=== PATIENT | female | born 1945 | race Two or more races ===

== ENCOUNTER → 2016-12-01 | Outpatient (REF) | payer MEDICARE, OTHER ==
[2016-12-01 13:29] LABS: CALCIUM LEVEL 9.6 MG/DL (8.8-10.2); CREATININE FOR GFR 1.01 MG/DL (0.55-1.02); GLOMERULAR FILTRATION RATE 57.7 (>39); POTASSIUM SERUM 4.7 MEQ/L (3.5-5.1)
== END ==
LOC: M SFHCPLAZ 10:40
PROVIDERS: ATTEND Family Medicine
DX: M79.1 Myalgia (principal); Z86.79 Personal history of other diseases of the circulatory system; E78.5 Hyperlipidemia, unspecified; Z79.899 Other long term (current) drug therapy

== ENCOUNTER → 2017-02-23 | Outpatient (REF) | payer MEDICARE, OTHER ==
[2017-02-23 11:10] LABS: URIC ACID 4.2 MG/DL (2.6-6.0)
== END ==
LOC: M SFHCPLAZ 09:13
PROVIDERS: ATTEND Family Medicine
DX: M13.0 Polyarthritis, unspecified (principal)

== ENCOUNTER → 2017-06-15 | Outpatient (REF) | payer MEDICARE, OTHER ==
[2017-06-15 11:24] LABS: CHOLESTEROL LEVEL 219 MG/DL (<200); CHOLESTEROL RISK RATIO 3.128 (<5); HDL CHOLESTEROL 70 MG/DL (>40); LDL CHOLESTEROL 117.4 MG/DL (<100); NON-HDL-C 149 MG/DL; TRIGLYCERIDES LEVEL 158 MG/DL (<150)
== END ==
LOC: M SFHCPLAZ 08:40
DX: E78.2 Mixed hyperlipidemia (principal)
CPT/HCPCS: 80061

== ENCOUNTER 2017-09-07 18:24 | Emergency (ER) | payer MEDICARE, BC, OTHER ==
[2017-09-07] MEDS: ACETAMINOPHEN 325 MG TAB PO (19:30)
[2017-09-07] MEDS: traMADol 50 MG TAB PO (20:41)
== END 2017-09-07 21:01 | disposition home or self-care (01) ==
LOC: M ED 21:01
DX: S90.32XA Contusion of left foot, initial encounter (principal); V00.818A Other accident with wheelchair (powered), initial encounter; Y92.098 Other place in other non-institutional residence as the place of occurrence of the external cause; F32.9 Major depressive disorder, single episode, unspecified; F41.9 Anxiety disorder, unspecified; Z87.891 Personal history of nicotine dependence; Z88.0 Allergy status to penicillin; Z79.899 Other long term (current) drug therapy
CPT/HCPCS: 73630

== ENCOUNTER 2017-10-09 18:05 | Emergency (ER) | payer MEDICARE, BC, OTHER ==
[2017-10-09 19:21] LABS: HEMATOCRIT 40.9 % (36.0-47.0); HEMOGLOBIN 13.4 g/dl (12.0-15.5); MEAN CORPUSCULAR HEMOGLOBIN 30.7 pg (27.0-33.0); MEAN CORPUSCULAR HGB CONC 32.8 g/dl (32.0-36.5); MEAN CORPUSCULAR VOLUME 93.6 fl (80.0-96.0); PLATELET COUNT, AUTOMATED 385 10^3/uL (150-450); RED BLOOD COUNT 4.37 10^6/uL (4.00-5.40); WHITE BLOOD COUNT 9.5 10^3/uL (4.0-10.0)
[2017-10-09] MEDS: PROMETHAZINE INJ 25 MG/ML VIAL (J2550) IV (19:32)
[2017-10-09] MEDS: MORPHINE 2 MG/ML 1ML SYRINGE (J2270) IV (19:33)
[2017-10-09 19:40] LABS: INR 0.99; PARTIAL THROMBOPLASTIN TIME 26.4 SECONDS (26.8-37.9); PROTHROMBIN TIME 13.2 SECONDS (12.4-14.5)
[2017-10-09 19:52] LABS: ANION GAP 7 MEQ/L (8-16); BLOOD UREA NITROGEN 22 MG/DL (7-18); CALCIUM LEVEL 9.1 MG/DL (8.8-10.2); CARBON DIOXIDE LEVEL 24 MEQ/L (21-32); CHLORIDE LEVEL 110 MEQ/L (98-107); CPK CREATINE PHOSPHOKINASE 128 U/L (26-192); CREATININE FOR GFR 1.38 MG/DL (0.55-1.30); GLOMERULAR FILTRATION RATE 40.2 (>39); GLUCOSE, FASTING 77 MG/DL (70-100); SODIUM LEVEL 141 MEQ/L (136-145)
[2017-10-09 20:06] LABS: MYOGLOBIN SCREEN, URINE NEGATIVE (NEGATIVE)
[2017-10-09] MEDS: NORCO, ANEXSIA 5/325MG TABLET (HYDROcodone/ACETAMINOPHEN) PO (20:59)
[2017-10-09 21:14] LABS: D-DIMER QUANT < 270.0 ng/ml (<500)
== END 2017-10-09 21:34 | disposition home or self-care (01) ==
LOC: M ED 18:05
DX: S76.111A Strain of right quadriceps muscle, fascia and tendon, initial encounter (principal); S76.112A Strain of left quadriceps muscle, fascia and tendon, initial encounter; X50.9XXA Other and unspecified overexertion or strenuous movements or postures, initial encounter; Y92.89 Other specified places as the place of occurrence of the external cause; I10 Essential (primary) hypertension; E78.5 Hyperlipidemia, unspecified; F41.9 Anxiety disorder, unspecified; Z87.39 Personal history of other diseases of the musculoskeletal system and connective tissue; F17.200 Nicotine dependence, unspecified, uncomplicated; Z88.0 Allergy status to penicillin; Z79.899 Other long term (current) drug therapy; Z79.891 Long term (current) use of opiate analgesic
CPT/HCPCS: J2270

== ENCOUNTER 2018-12-06 15:14 | Emergency (ER) | payer MEDICARE, BC, OTHER ==
[~2018-12-06] VITALS: Ht 157.5 cm; Wt 42.3 kg
[~2018-12-06 15:14] MED LIST: CLON0.5T8 PO; DULO1CAP5; FLUO20CA19 PO; GABA-843; GABA600T4 PO; LORA0.5T11; NYST50SS; PRAV20TA2; TRAM50TA2
[2018-12-06] MEDS ORDERED: ATOR1TAB21 (15:31)
[2018-12-06] MEDS ORDERED: ACETAMINOPHEN 325 MG TAB PO ONE (16:00)
[2018-12-06] MEDS ORDERED: LORazepam 0.5 MG TAB PO STA (16:01)
[2018-12-06 16:13] LABS: HEMATOCRIT 40.6 % (36.0-47.0); HEMOGLOBIN 13.3 g/dl (12.0-15.5); MEAN CORPUSCULAR HEMOGLOBIN 29.7 pg (27.0-33.0); MEAN CORPUSCULAR HGB CONC 32.8 g/dl (32.0-36.5); MEAN CORPUSCULAR VOLUME 90.6 fl (80.0-96.0); PLATELET COUNT, AUTOMATED 314 10^3/uL (150-450); RED BLOOD COUNT 4.48 10^6/uL (4.00-5.40)
[2018-12-06 16:47] VITALS: BP 145/68
[2018-12-06 16:53] LABS: ACETAMINOPHEN LEVEL 16.1 UG/ML (10.0-30.0); ALBUMIN 3.7 GM/DL (3.2-5.2); ALT/SGPT 23 U/L (12-78); BILIRUBIN,DIRECT < 0.1 MG/DL (0.0-0.2); BILIRUBIN,TOTAL 0.3 MG/DL (0.2-1.0); BLOOD UREA NITROGEN 13 MG/DL (7-18); CALCIUM LEVEL 8.9 MG/DL (8.8-10.2); CARBON DIOXIDE LEVEL 26 MEQ/L (21-32); CHLORIDE LEVEL 109 MEQ/L (98-107); CREATININE FOR GFR 1.18 MG/DL (0.55-1.30); ETHYL ALCOHOL (ETHANOL) < 0.003 % (0.000-0.010); GLOMERULAR FILTRATION RATE 47.9 (>39); GLUCOSE, FASTING 85 MG/DL (70-100); POTASSIUM SERUM 4.4 MEQ/L (3.5-5.1); SALICYLATE LEVEL 4.4 MG/DL (5.0-30.0); SODIUM LEVEL 140 MEQ/L (136-145); TOTAL PROTEIN 7.3 GM/DL (6.4-8.2)
[2018-12-06 17:14] LABS: AMPHETAMINES LEVEL URINE NEGATIVE (NEGATIVE); BARBITURATES URINE NEGATIVE (NEGATIVE); BENZODIAZEPINES URINE NEGATIVE (NEGATIVE); CANNABINOIDS URINE NEGATIVE (NEGATIVE); COCAINE METABOLITE URINE NEGATIVE (NEGATIVE); METHADONE URINE NEGATIVE (NEGATIVE); OPIATES URINE POSITIVE (NEGATIVE); PHENCYCLIDINE URINE NEGATIVE (NEGATIVE)
== END 2018-12-06 16:48 | disposition home or self-care (01) ==
LOC: M ED 15:14
DX: F43.0 Acute stress reaction (principal); I10 Essential (primary) hypertension; Z79.899 Other long term (current) drug therapy; Z88.0 Allergy status to penicillin; Z88.5 Allergy status to narcotic agent; Z88.8 Allergy status to other drugs, medicaments and biological substances
CPT/HCPCS: 80048; 80076; 80307; 84443; 85027; 99284; G0480

== ENCOUNTER → 2019-02-01 | Outpatient (REF) | payer MEDICARE, OTHER ==
[~2019-02-01] MED LIST changes: +ATOR1TAB21
[2019-02-01 18:46] LABS: CPK CREATINE PHOSPHOKINASE 99 U/L (26-192)
[2019-02-02 20:51] LABS: COLD AGGLUTININS NEGATIVE (NEGATIVE)
== END ==
LOC: M SFHCPLAZ 15:29
PROVIDERS: ATTEND Family Medicine
DX: G72.9 Myopathy, unspecified (principal)
CPT/HCPCS: 36415; 82550; 86157; G0463

== ENCOUNTER 2019-04-04 10:56 | Day surgery (SDC) | payer MEDICARE, BC, OTHER ==
[~2019-04-04] VITALS: Ht 157.5 cm; Wt 42.1 kg
[~2019-04-04 10:56] MED LIST changes: -ATOR1TAB21; +ATOR1TAB21 PO; +FLUO40CA PO; +NS 1,000 ML IV SCH; -TRAM50TA2; +TRAM50TA2 PO
[2019-04-04] MEDS ORDERED: LIDOCAINE 2% INJ 100 MG/5 ML SDV (FOR ANES.) As Ordered ONE (11:38)
[2019-04-04] MEDS ORDERED: PROPOFOL 200 MG/20 ML VIAL As Ordered ONE (11:39)
[2019-04-04] MEDS ORDERED: MIDAZOLAM INJ 2 MG/2 ML VIAL (J2250) As Ordered ONE (12:42)
[2019-04-04] MEDS ORDERED: fentaNYL 100 MCG/2 ML INJECTION (J3010) As Ordered ONE (12:43)
[2019-04-04] MEDS ORDERED: PHENYLephrine HCL 500 MCG/5 ML (100MCG/ML) SYRINGE (J2370) As Ordered ONE (13:40)
--- NOTE | 2019-04-04 14:10 | ROOR ---
Patient Name: Terrie Boston Procedure Date: 04/04/2019 1:16 PM Date of : 1945 Age: 73 Room: [facility] Gender: Female Note Status: Finalized Procedure: Upper GI endoscopy Indications: Weight loss Providers: Jonh Jones DO Referring MD: Sapna Savage Do Requesting Provider: Medicines: Propofol per Anesthesia Complications: No immediate complications. Procedure: Pre-Anesthesia Assessment: - Prior to the procedure, a History and Physical was performed, and patient medications and allergies were reviewed. The patient is competent. The risks and benefits of the procedure and the sedation options and risks were discussed with the patient. All questions were answered and informed consent was obtained. Patient identification and proposed procedure were verified by the physician, the nurse, the anesthesiologist and the chemical waste management technician in the endoscopy suite. Mental Status Examination: alert and oriented. Airway Examination: normal oropharyngeal airway and neck mobility. Respiratory Examination: clear to auscultation. CV Examination: normal. Prophylactic Antibiotics: The patient does not require prophylactic antibiotics. Prior Anticoagulants: The patient has taken no previous anticoagulant or antiplatelet agents. ASA Grade Assessment: II - A patient with mild systemic disease. After reviewing the risks and benefits, the patient was deemed in satisfactory condition to undergo the procedure. The anesthesia plan was to use monitored anesthesia care (MAC). Immediately prior to administration of medications, the patient was re-assessed for adequacy to receive sedatives. The heart rate, respiratory rate, oxygen saturations, blood pressure, adequacy of pulmonary ventilation, and response to care were monitored throughout the procedure. The physical status of the patient was re-assessed after the procedure. The Endoscope was introduced through the mouth, and advanced to the second part of duodenum. The upper GI endoscopy was accomplished without difficulty. The upper GI endoscopy was accomplished without difficulty. The patient tolerated the procedure well. Findings: Hematin (altered blood/mixmvu-nozzrv-memw material) was found in the gastric body. Mild inflammation characterized by adherent blood and congestion (edema) was found in the gastric body. The exam was otherwise without abnormality. Impression: - Hematin (altered blood/savqoq-mwmxyt-jgmq material) in the gastric body. - Gastritis. - The examination was otherwise normal. - No specimens collected. Recommendation: - Patient has a contact number available for emergencies. The signs and symptoms of potential delayed complications were discussed with the patient. Return to normal activities tomorrow. Written discharge instructions were provided to the patient. - Return to my office PRN. Jonh Jones DO 04/04/2019 2:09:47 PM Electronically signed by Jonh Jones DO Number of Addenda: 0 Note Initiated On: 04/04/2019 1:16 PM Estimated Blood Loss: Estimated blood loss: none.
--- NOTE | 2019-04-04 14:14 | ROOR ---
Patient Name: Terrie Boston Procedure Date: 04/04/2019 1:18 PM Date of : 1945 Age: 73 Room: [facility] Gender: Female Note Status: Finalized Procedure: Colonoscopy Indications: Weight loss Providers: Jonh Jones DO Referring MD: Sapna Savage Do Requesting Provider: Medicines: Propofol per Anesthesia Complications: No immediate complications. Procedure: Pre-Anesthesia Assessment: - Prior to the procedure, a History and Physical was performed, and patient medications and allergies were reviewed. The patient is competent. The risks and benefits of the procedure and the sedation options and risks were discussed with the patient. All questions were answered and informed consent was obtained. Patient identification and proposed procedure were verified by the physician, the nurse, the anesthesiologist and the oil and gas exploration technician in the endoscopy suite. Mental Status Examination: alert and oriented. Airway Examination: normal oropharyngeal airway and neck mobility. Respiratory Examination: clear to auscultation. CV Examination: normal. Prophylactic Antibiotics: The patient does not require prophylactic antibiotics. Prior Anticoagulants: The patient has taken no previous anticoagulant or antiplatelet agents. ASA Grade Assessment: II - A patient with mild systemic disease. After reviewing the risks and benefits, the patient was deemed in satisfactory condition to undergo the procedure. The anesthesia plan was to use monitored anesthesia care (MAC). Immediately prior to administration of medications, the patient was re-assessed for adequacy to receive sedatives. The heart rate, respiratory rate, oxygen saturations, blood pressure, adequacy of pulmonary ventilation, and response to care were monitored throughout the procedure. The physical status of the patient was re-assessed after the procedure. The Colonoscope was introduced through the anus and advanced to the cecum, identified by appendiceal orifice and ileocecal valve. The colonoscopy was performed without difficulty. The patient tolerated the procedure well. Findings: A few small-mouthed diverticula were found in the sigmoid colon. Internal hemorrhoids were found during retroflexion. The hemorrhoids were small and Grade II (internal hemorrhoids that prolapse but reduce spontaneously). The exam was otherwise without abnormality on direct and retroflexion views. Impression: - Diverticulosis in the sigmoid colon. - Internal hemorrhoids. - The examination was otherwise normal on direct and retroflexion views. - No specimens collected. Recommendation: - Patient has a contact number available for emergencies. The signs and symptoms of potential delayed complications were discussed with the patient. Return to normal activities tomorrow. Written discharge instructions were provided to the patient. - Return to my office PRN. Jonh Jones DO 04/04/2019 2:13:25 PM Electronically signed by Jonh Jones DO Number of Addenda: 0 Note Initiated On: 04/04/2019 1:18 PM Estimated Blood Loss: Estimated blood loss: none.
[2019-04-04 15:15] VITALS: BP 125/75
== END 2019-04-04 15:36 | disposition home or self-care (01) ==
LOC: M OPP 10:56
PROVIDERS: ATTEND Surgery
DX: Z86.010 Personal history of colon polyps (principal); K64.1 Second degree hemorrhoids; R63.4 Abnormal weight loss; K57.30 Diverticulosis of large intestine without perforation or abscess without bleeding; K92.2 Gastrointestinal hemorrhage, unspecified; K29.70 Gastritis, unspecified, without bleeding; F17.210 Nicotine dependence, cigarettes, uncomplicated; Z79.891 Long term (current) use of opiate analgesic; Z79.899 Other long term (current) drug therapy; Z88.0 Allergy status to penicillin; Z88.4 Allergy status to anesthetic agent; Z88.5 Allergy status to narcotic agent; Z88.8 Allergy status to other drugs, medicaments and biological substances
CPT/HCPCS: 43235; 45378; J2250; J2370; J3010

== ENCOUNTER → 2019-04-10 | Outpatient (CLI) | payer MEDICARE, BC, OTHER ==
[~2019-04-10] MED LIST changes: -NS 1,000 ML IV SCH
--- NOTE | 2019-04-10 19:31 | REP ---
LOW DOSE LUNG SCREENING CT: Low dose lung screening CT exam is accomplished in the axial plane. There is scattered interstitial fibrosis with biapical pleural and parenchymal scarring. Multiple bilateral subcentimeter nodular opacities are seen measuring 2 to 3 mm in diameter. There are approximately 10 scattered throughout the right lung and approximately 18 scattered throughout the left lung. There is a band of density along the minor fissure on the right measuring 8 x 4 mm. There are a few peripheral calcified granulomas in the right middle lobe. A band of density in the left upper lobe on image 34 measures 7 x 4 mm. A 5 mm nodular opacity seen in the left lower lobe on image 64. There is somewhat irregular pleural based opacity in the region of the lingula measuring about 12 x 5 mm. More inferiorly in the lingula there is a pleural based oval nodular opacity 6 mm in diameter. There is mild diffuse bronchiectasis. No gross mediastinal contour abnormality is seen. The heart is normal in size. There is calcification of the thoracic aorta without aneurysm. There are degenerative changes of the spine. No pleural effusion is seen. IMPRESSION: Diffuse fibrotic changes in the lungs. There are multiple bilateral subcentimeter nodular opacities 2 to 3 mm in diameter as discussed above. There are also other slightly larger nodular opacities, with a band of opacity along the right minor fissure 8 x 4 mm, a bandlike opacity in the left upper lobe 7 x 4 mm, two pleural based opacities in the lingula and a nodular opacity in the left lower lobe 5 mm in diameter. Recommend followup CT with IV contrast in three months. Lung-RADS category 4 A. Electronically Signed by Jonh Mcdaniels MD 04/11/2019 03:36 P
== END ==
LOC: M RAD 12:45
PROVIDERS: ATTEND Obstetrics & Gynecology
DX: R91.8 Other nonspecific abnormal finding of lung field (principal); Z87.891 Personal history of nicotine dependence

== ENCOUNTER → 2019-05-29 | Outpatient (CLI) | payer MEDICARE, BC ==
[~2019-05-29] MED LIST changes: +CLON0.5T2 PO; -CLON0.5T8 PO
--- NOTE | 2019-05-29 14:01 | REPMRS ---
Patient History The patient states she has not had a clinical breast exam in over a year. Patient is postmenopausal. Family history of breast cancer at age 50 in sister, tongue cancer at age 29 in daughter, breast cancer at age 95 in maternal grandmother. Patients priors are no longer available, more than 10 years old. Digital Woman Screen Mammo: May 29, 2019 - Exam #: [id number] Bilateral CC and MLO view(s) were taken. Technologist: Darcie Yu, Technologist No prior studies available for comparison. FINDINGS: The breast tissue is heterogeneously dense. This may lower the sensitivity of mammography. There is no evidence of dominant mass, architectural distortion, or grouped microcalcification typical of malignancy. 3-D tomosynthesis shows no additional findings. Assessment: BI-RADS/ACR category 1 mammogram. Negative Mammogram. Recommendation Routine screening mammogram of both breasts in 1 year (for women over age 40). This patient's Lifetime Breast Cancer RIsk is estimated at 5.3 %. This mammogram was interpreted with the aid of an FDA-approved computer-aided dectection system. Electronically Signed By: Alvarado Prasad MD 05/29/19 [id number]
== END ==
LOC: M WHC 12:52
PROVIDERS: ATTEND Obstetrics & Gynecology
DX: Z12.31 Encounter for screening mammogram for malignant neoplasm of breast (principal); Z78.0 Asymptomatic menopausal state; Z80.3 Family history of malignant neoplasm of breast

== ENCOUNTER → 2019-07-03 | Outpatient (CLI) | payer MEDICARE, BC, OTHER ==
[~2019-07-03] MED LIST changes: -FLUO20CA19 PO; +FLUO20CA22 PO; -LORA0.5T11; +LORA0.5T5
--- NOTE | 2019-07-03 13:25 | REP ---
Clinical: Myopathy. Technique: AP, lateral, flexion/extension, bilateral oblique and coned-down views of the lumbosacral spine. Findings: Alignment and lordosis maintained. No acute fracture / compression injury or subluxation. Mild degenerative disc disease includes endplate sclerosis with minimal disc space narrowing and subtle facet arthropathy at L4-5 and L5-S1. Impression: Very minimal degenerative changes noted. Electronically Signed by Flo Preston MD 07/03/2019 01:16 P
[2019-07-03 14:03] LABS: BASO # 0.1 10^3/uL (0.0-0.2); BASO % 1.1 % (0.0-1.0); EOS # 0.1 10^3/uL (0.0-0.5); EOS % 0.6 % (0.0-3.0); HEMATOCRIT 44.4 % (36.0-47.0); HEMOGLOBIN 13.8 g/dl (12.0-15.5); LYMPH # 1.3 10^3/uL (1.5-5.0); LYMPH % 16.5 % (24.0-44.0); MEAN CORPUSCULAR HEMOGLOBIN 27.2 pg (27.0-33.0); MEAN CORPUSCULAR HGB CONC 31.1 g/dl (32.0-36.5); MEAN CORPUSCULAR VOLUME 87.4 fl (80.0-96.0); MONO # 0.4 10^3/uL (0.0-0.8); MONO % 5.1 % (0.0-5.0); NEUTROPHILS # 6.1 10^3/uL (1.5-8.5); NEUTROPHILS % 76.2 % (36.0-66.0); PLATELET COUNT, AUTOMATED 398 10^3/uL (150-450); RED BLOOD COUNT 5.08 10^6/uL (4.00-5.40)
[2019-07-03 14:09] LABS: APPEARANCE, URINE CLOUDY (CLEAR); BACTERIA, URINE AUTO 3+ (NEGATIVE); BILIRUBIN, URINE AUTO NEGATIVE (NEGATIVE); BLOOD, URINE BLOOD NEGATIVE (NEGATIVE); COLOR, URINE AMBER (YELLOW); GLUCOSE, URINE (UA) AUTO NEGATIVE (NEGATIVE); KETONE, URINE AUTO TRACE mg/dL (NEGATIVE); LEUKOCYTE ESTERASE, URINE AUTO 1+ (NEGATIVE); MUCUS, URINE SMALL (NEGATIVE); NITRITE, URINE AUTO POSITIVE (NEGATIVE); PROTEIN, URINE AUTO 2+ mg/dL (NEGATIVE); RBC, URINE AUTO 9 /HPF (0-3); SPECIFIC GRAVITY URINE AUTO 1.026 (1.002-1.035); SQUAMOUS EPITHELIAL CELL UR AU 12 /HPF (0-6); TRANSITIONAL EPITHELIAL AUTO 1 /HPF; WBC, URINE AUTO 16 /HPF (0-3)
[2019-07-03 14:19] LABS: BILIRUBIN,TOTAL 0.3 MG/DL (0.2-1.0); CALCIUM LEVEL 9.5 MG/DL (8.8-10.2); CREATININE FOR GFR 1.23 MG/DL (0.55-1.30); GLOMERULAR FILTRATION RATE 45.7 (>39); POTASSIUM SERUM 4.5 MEQ/L (3.5-5.1); TOTAL PROTEIN 7.3 GM/DL (6.4-8.2)
== END ==
LOC: M LAB 12:07
PROVIDERS: ATTEND Obstetrics & Gynecology
DX: R63.4 Abnormal weight loss (principal); G72.9 Myopathy, unspecified

== ENCOUNTER → 2019-09-14 | Outpatient (REF) | payer MEDICARE ==
[2019-09-14 18:33] LABS: CALCIUM LEVEL 9.2 MG/DL (8.8-10.2); CHOLESTEROL RISK RATIO 2.882 (<5); CREATININE FOR GFR 1.28 MG/DL (0.55-1.30); GLOMERULAR FILTRATION RATE 43.6 (>39); POTASSIUM SERUM 4.5 MEQ/L (3.5-5.1)
[2019-09-14 20:26] LABS: FREE T4 0.85 NG/DL (0.76-1.46); THYROID STIMULATING HORMONE 4.06 uIU/ML (0.358-3.740)
== END ==
LOC: M SFHCPLAZ 15:33
DX: F41.9 Anxiety disorder, unspecified (principal); Z13.1 Encounter for screening for diabetes mellitus; Z13.220 Encounter for screening for lipoid disorders; Z79.899 Other long term (current) drug therapy

== ENCOUNTER → 2019-10-30 | Outpatient (CLI) | payer MEDICARE | LOC: M LABSMTC 13:01 | PROVIDERS: ATTEND Family Medicine | DX: Z03.818 Encounter for observation for suspected exposure to other biological agents ruled out (principal); Z11.59 Encounter for screening for other viral diseases | CPT/HCPCS: C9803; U0003 ==

== ENCOUNTER 2019-11-24 13:59 | Emergency (ER) | payer MEDICARE ==
[~2019-11-24] VITALS: Ht 157.5 cm; Wt 47.4 kg
[2019-11-24] MEDS ORDERED: AMIT10TA (14:08)
[2019-11-24] MEDS ORDERED: GABA-845 (14:08)
--- NOTE | 2019-11-24 14:48 | REP ---
Clinical: Chest pain . Comparison: None . Findings: The mediastinum and cardiac silhouette are stable and within normal limits for portable technique. The lung viramontes demonstrate chronic-appearing changes without acute consolidation, effusion, or pneumothorax. Skeletal structures are intact. Impression: No acute cardiopulmonary process appreciated. Electronically Signed by Flo Preston MD 11/24/2019 02:39 P
--- NOTE | 2019-11-24 15:01 | REP ---
Clinical: Altered mental status . Findings: Age-related atrophy and microvascular ischemic changes are appreciated. The ventricles and sulci are symmetric. Mcdaniels-white differentiation is maintained. There is no evidence for acute intracranial hemorrhage, mass/mass effect, pathology or infarction. No extra-axial fluid collection. Calvarium is intact. Paranasal sinuses and mastoid air cells are clear. Impression: Age related atrophy and microvascular ischemic changes. No acute intracranial hemorrhage, infarction, or mass/mass effect. Electronically Signed by Flo Preston MD 11/24/2019 02:52 P
[2019-11-24 15:31] LABS: BASO # 0.1 10^3/uL (0.0-0.2); BASO % 1.4 % (0.0-1.0); EOS # 0.2 10^3/uL (0.0-0.5); EOS % 2.7 % (0.0-3.0); HEMATOCRIT 39.5 % (36.0-47.0); HEMOGLOBIN 12.6 g/dl (12.0-15.5); LYMPH # 2.1 10^3/uL (1.5-5.0); LYMPH % 31.2 % (24.0-44.0); MEAN CORPUSCULAR HEMOGLOBIN 28.8 pg (27.0-33.0); MEAN CORPUSCULAR HGB CONC 31.9 g/dl (32.0-36.5); MEAN CORPUSCULAR VOLUME 90.4 fl (80.0-96.0); MONO # 0.5 10^3/uL (0.0-0.8); MONO % 7.6 % (0.0-5.0); NEUTROPHILS # 3.7 10^3/uL (1.5-8.5); NEUTROPHILS % 56.8 % (36.0-66.0); PLATELET COUNT, AUTOMATED 267 10^3/uL (150-450); RED BLOOD COUNT 4.37 10^6/uL (4.00-5.40); WHITE BLOOD COUNT 6.6 10^3/uL (4.0-10.0)
[2019-11-24 15:52] LABS: INR 0.97; PROTHROMBIN TIME 12.6 SECONDS (11.8-14.0)
[2019-11-24 15:58] LABS: ALBUMIN 3.8 GM/DL (3.2-5.2); ALT/SGPT 27 U/L (12-78); BILIRUBIN,DIRECT 0.1 MG/DL (0.0-0.2); BILIRUBIN,TOTAL 0.4 MG/DL (0.2-1.0); BLOOD UREA NITROGEN 23 MG/DL (7-18); CALCIUM LEVEL 8.8 MG/DL (8.8-10.2); CARBON DIOXIDE LEVEL 20 MEQ/L (21-32); CHLORIDE LEVEL 110 MEQ/L (98-107); CK-MB VALUE MASS 8.3 NG/ML (<3.6); CPK CREATINE PHOSPHOKINASE 687 U/L (26-192); CREATININE FOR GFR 1.64 MG/DL (0.55-1.30); GLOMERULAR FILTRATION RATE 32.7 (>39); GLUCOSE, FASTING 71 MG/DL (70-100); LIPASE 88 U/L (73-393); MB/CK RELATIVE INDEX 1.21 (< OR =4); POTASSIUM SERUM 4.3 MEQ/L (3.5-5.1); SODIUM LEVEL 141 MEQ/L (136-145); TOTAL PROTEIN 7.1 GM/DL (6.4-8.2); TROPONIN I < 0.02 NG/ML (< 0.10)
[2019-11-24] MEDS ORDERED: NS 500 ML IV ONE (16:30)
--- NOTE | 2019-11-24 16:50 | ECGEPIP ---
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
--- NOTE | 2019-11-24 17:28 | REP ---
Clinical: Trauma. Fall. Technique: Frontal view of the pelvis. Findings: Age-related degenerative changes. No acute fracture or dislocation. Surrounding soft tissues unremarkable. Impression: No acute fracture or dislocation. Electronically Signed by Flo Preston MD 11/24/2019 05:20 P
[2019-11-24] MEDS ORDERED: traMADol 50 MG TAB PO ONE ×2 (17:45→19:15)
[2019-11-24] MEDS ORDERED: cefTRIAXone SOD 1 GM in D5W MINI-BAG PLUS 50 ML IV ONE (17:45)
[2019-11-24] MEDS ORDERED: MORPHINE 2 MG/ML 1ML VIAL (J2270) IV ONE (18:15)
[2019-11-24 19:00] VITALS: BP 172/93
[2019-11-24] MEDS ORDERED: KEFL500C17 PO (19:03)
== END 2019-11-24 19:29 | disposition home or self-care (01) ==
LOC: M ED 13:59
DX: N39.0 Urinary tract infection, site not specified (principal); E78.5 Hyperlipidemia, unspecified; F17.200 Nicotine dependence, unspecified, uncomplicated; Z79.899 Other long term (current) drug therapy; Z88.0 Allergy status to penicillin; Z88.6 Allergy status to analgesic agent; Z88.8 Allergy status to other drugs, medicaments and biological substances
CPT/HCPCS: 70450; 71045; 72170; 80048; 80076; 81001; 82550; 82553; 83690; 84484; 85025; 85610; 87088; 87186; 93005; 93041; 94760; 96365; 96375; 99285; J0696; J2270

== ENCOUNTER → 2020-02-13 | Outpatient (CLI) | payer MEDICARE ==
[~2020-02-13] MED LIST changes: +AMIT10TA; +GABA-845; +KEFL500C17 PO; +MECL1TAB31 PO; +PARO40TA2
[2020-02-13 13:38] LABS: APPEARANCE, URINE HAZY (CLEAR); BACTERIA, URINE AUTO 1+ (NEGATIVE); BILIRUBIN, URINE AUTO NEGATIVE (NEGATIVE); BLOOD, URINE BLOOD NEGATIVE (NEGATIVE); COLOR, URINE YELLOW (YELLOW); GLUCOSE, URINE (UA) AUTO NEGATIVE (NEGATIVE); KETONE, URINE AUTO TRACE mg/dL (NEGATIVE); LEUKOCYTE ESTERASE, URINE AUTO 3+ (NEGATIVE); NITRITE, URINE AUTO NEGATIVE (NEGATIVE); PROTEIN, URINE AUTO NEGATIVE (NEGATIVE); RBC, URINE AUTO 2 /HPF (0-3); SPECIFIC GRAVITY URINE AUTO 1.015 (1.002-1.035); SQUAMOUS EPITHELIAL CELL UR AU 3 /HPF (0-6); UROBILINOGEN, URINE AUTO 0.2 mg/dL (0.0-2.0); WBC, URINE AUTO 23 /HPF (0-3)
[2020-02-13 14:07] LABS: CREATININE FOR GFR 1.39 MG/DL (0.55-1.30); GLOMERULAR FILTRATION RATE 39.6 (>39); POTASSIUM SERUM 4.4 MEQ/L (3.5-5.1)
[2020-02-13 14:08] LABS: ALBUMIN 3.7 GM/DL (3.2-5.2); BILIRUBIN,TOTAL 0.3 MG/DL (0.2-1.0); CHOLESTEROL RISK RATIO 3.554 (<5); CREATININE, URINE 88.4 MG/DL; FREE T4 0.89 NG/DL (0.76-1.46); MALB URINE SIEMENS 25.6 MG/L; MAU/CREAT RATIO 28.9 MCG/MG (0.0-30.0); TOTAL PROTEIN 7.4 GM/DL (6.4-8.2)
== END ==
LOC: M PLALAB 11:29
PROVIDERS: ATTEND Student in an Organized Health Care Education/Training Program
DX: E03.9 Hypothyroidism, unspecified (principal); E78.5 Hyperlipidemia, unspecified; N18.3 Chronic kidney disease, stage 3 (moderate); Z51.81 Encounter for therapeutic drug level monitoring

== ENCOUNTER 2020-02-29 14:49 | Emergency (ER) | payer MEDICARE ==
[~2020-02-29] VITALS: Ht 157.5 cm; Wt 50.0 kg
[~2020-02-29 14:49] MED LIST changes: -MECL1TAB31 PO; -PARO40TA2
--- NOTE | 2020-02-29 15:35 | REPVR ---
PROCEDURE INFORMATION: Exam: CT Head Without Contrast Exam date and time: 02/29/2020 3:19 PM Age: 74 years old Clinical indication: Dizziness; Additional info: CVA - nursing interventions must not delay CT TECHNIQUE: Imaging protocol: Computed tomography of the head without contrast. Radiation optimization: All CT scans at this facility use at least one of these dose optimization techniques: automated exposure control; mA and/or kV adjustment per patient size (includes targeted exams where dose is matched to clinical indication); or iterative reconstruction. Other technique: STROKE PROTOCOL was implemented. COMPARISON: CT Head without contrast 11/24/2019 2:35 PM FINDINGS: Brain: There is moderate generalized cerebral atrophy. Moderately advanced patchy low density present in the periventricular white matter extending into the maki radiata and the centrum semiovale bilaterally. No hemorrhage. No mass effect. Midline structures intact Cerebral ventricles: No ventriculomegaly. Bones/joints: Unremarkable. No acute fracture. Paranasal sinuses: Visualized sinuses are unremarkable. No fluid levels. Mastoid air cells: Visualized mastoid air cells are well aerated. Soft tissues: Unremarkable. IMPRESSION: No acute findings. 2. Moderate cortical atrophy. ASSESSMENT: ASPECTS (Devi Stroke Program Early CT Score) is 10. Electronically signed by: Tanya Low On 02/29/2020 15:35:29 PM
[2020-02-29 16:02] LABS: BASO # 0.1 10^3/uL (0.0-0.2); BASO % 1.2 % (0.0-1.0); EOS # 0.1 10^3/uL (0.0-0.5); EOS % 1.9 % (0.0-3.0); HEMATOCRIT 38.9 % (36.0-47.0); HEMOGLOBIN 12.2 g/dl (12.0-15.5); LYMPH # 2.4 10^3/uL (1.5-5.0); LYMPH % 35.2 % (24.0-44.0); MEAN CORPUSCULAR HEMOGLOBIN 28.8 pg (27.0-33.0); MEAN CORPUSCULAR HGB CONC 31.4 g/dl (32.0-36.5); MONO # 0.4 10^3/uL (0.0-0.8); MONO % 6.3 % (0.0-5.0); NEUTROPHILS # 3.8 10^3/uL (1.5-8.5); NEUTROPHILS % 55.1 % (36.0-66.0); PLATELET COUNT, AUTOMATED 313 10^3/uL (150-450); RED BLOOD COUNT 4.23 10^6/uL (4.00-5.40); WHITE BLOOD COUNT 6.9 10^3/uL (4.0-10.0)
[2020-02-29] MEDS ORDERED: PARO40TA2 (16:13)
[2020-02-29 16:14] LABS: INR 0.96
[2020-02-29 16:15] LABS: PARTIAL THROMBOPLASTIN TIME 27.9 SECONDS (24.2-38.5)
--- NOTE | 2020-02-29 16:24 | REPVR ---
PROCEDURE INFORMATION: Exam: XR Chest, 1 View Exam date and time: 02/29/2020 4:12 PM Age: 74 years old Clinical indication: Shortness of breath; Additional info: CVA TECHNIQUE: Imaging protocol: XR of the chest Views: 1 view. COMPARISON: CR PORTABLE CHEST X-RAY 11/24/2019 2:26 PM FINDINGS: Tubes, catheters and devices: External monitoring devices present. Lungs: Calcified granulomas present on the right . Diffuse emphysema with hyperinflation. Pleural space: Unremarkable. No pleural effusion. No pneumothorax. Heart/Mediastinum: Unremarkable. No cardiomegaly. Bones/joints: Unremarkable. Other findings: 1 cm oval-shaped area sclerosis projects over the left humeral head. IMPRESSION: Emphysema with hyperinflation Electronically signed by: Tanya Low On 02/29/2020 16:23:55 PM
[2020-02-29 16:32] LABS: CK-MB VALUE MASS 2.2 NG/ML (<3.6); CPK CREATINE PHOSPHOKINASE 199 U/L (26-192); MB/CK RELATIVE INDEX 1.11 (< OR =4); TROPONIN I < 0.02 NG/ML (< 0.10)
[2020-02-29] MEDS ORDERED: MECLIZINE 25 MG TABLET PO ONE (16:45)
[2020-02-29 18:15] VITALS: BP 158/94
[2020-02-29] MEDS ORDERED: MECL1TAB31 PO (18:30)
--- NOTE | 2020-03-01 06:41 | ECGEPIP ---
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
== END 2020-02-29 19:00 | disposition home or self-care (01) ==
LOC: M ED 14:49
DX: H83.09 Labyrinthitis, unspecified ear (principal); I10 Essential (primary) hypertension; G31.9 Degenerative disease of nervous system, unspecified; J43.9 Emphysema, unspecified; Z88.0 Allergy status to penicillin; Z88.6 Allergy status to analgesic agent; Z88.8 Allergy status to other drugs, medicaments and biological substances; Z79.899 Other long term (current) drug therapy

== ENCOUNTER → 2020-03-21 | Outpatient (REF) | payer MEDICARE ==
[~2020-03-21] MED LIST changes: +MECL1TAB31 PO; +PARO40TA2
== END ==
LOC: M SFHCPLAZ 16:46
PROVIDERS: ATTEND Student in an Organized Health Care Education/Training Program
DX: Z51.81 Encounter for therapeutic drug level monitoring (principal)

== ENCOUNTER 2020-04-15 11:34 | Emergency (ER) | payer MEDICARE ==
[~2020-04-15] VITALS: Ht 157.5 cm; Wt 49.1 kg
[2020-04-15] MEDS ORDERED: diazePAM 10MG/2ML SYRINGE (J3360 PER 5MG) IM ONE (12:15)
[2020-04-15] MEDS ORDERED: KETOROLAC 30 MG/ML 1ML VIAL IM ONE (12:15)
[2020-04-15] MEDS ORDERED: NEUR600T PO (13:06)
[2020-04-15 13:37] VITALS: BP 159/79
== END 2020-04-15 13:43 | disposition home or self-care (01) ==
LOC: M ED 11:34
DX: M79.604 Pain in right leg (principal); M79.605 Pain in left leg; F17.200 Nicotine dependence, unspecified, uncomplicated; Z88.0 Allergy status to penicillin; Z88.8 Allergy status to other drugs, medicaments and biological substances; Z88.6 Allergy status to analgesic agent; Z79.899 Other long term (current) drug therapy
CPT/HCPCS: 96372; 99284; J1885; J3360

== ENCOUNTER 2020-05-13 16:58 | Emergency (ER) | payer MEDICARE ==
[~2020-05-13] VITALS: Ht 157.5 cm; Wt 46.4 kg
[~2020-05-13 16:58] MED LIST changes: +GABA-282; -GABA-843; +NEUR600T PO
[2020-05-13] MEDS ORDERED: ALPRAZolam 0.25 MG TAB PO ONE (18:00)
[2020-05-13 18:44] LABS: HEMATOCRIT 46.4 % (36.0-47.0); HEMOGLOBIN 14.5 g/dl (12.0-15.5); MEAN CORPUSCULAR HEMOGLOBIN 28.5 pg (27.0-33.0); MEAN CORPUSCULAR HGB CONC 31.3 g/dl (32.0-36.5); MEAN CORPUSCULAR VOLUME 91.3 fl (80.0-96.0); PLATELET COUNT, AUTOMATED 303 10^3/uL (150-450); RED BLOOD COUNT 5.08 10^6/uL (4.00-5.40); WHITE BLOOD COUNT 7.6 10^3/uL (4.0-10.0)
[2020-05-13 19:32] LABS: ALBUMIN 4.1 GM/DL (3.2-5.2); ALT/SGPT 65 U/L (12-78); BILIRUBIN,DIRECT 0.1 MG/DL (0.0-0.2); BILIRUBIN,TOTAL 0.4 MG/DL (0.2-1.0); BLOOD UREA NITROGEN 25 MG/DL (7-18); CALCIUM LEVEL 8.9 MG/DL (8.8-10.2); CARBON DIOXIDE LEVEL 28 MEQ/L (21-32); CHLORIDE LEVEL 106 MEQ/L (98-107); CREATININE FOR GFR 1.41 MG/DL (0.55-1.30); ETHYL ALCOHOL (ETHANOL) 0.004 % (0.000-0.010); GLOMERULAR FILTRATION RATE 38.9 (>39); GLUCOSE, FASTING 138 MG/DL (70-100); POTASSIUM SERUM 4.1 MEQ/L (3.5-5.1); SALICYLATE LEVEL 2.6 MG/DL (5.0-30.0); SODIUM LEVEL 141 MEQ/L (136-145); TOTAL PROTEIN 7.7 GM/DL (6.4-8.2)
[2020-05-13 19:33] LABS: ACETAMINOPHEN LEVEL < 2.0 UG/ML (10.0-30.0)
--- NOTE | 2020-05-13 19:46 | REPVR ---
PROCEDURE INFORMATION: Exam: CT Head Without Contrast Exam date and time: 05/13/2020 7:14 PM Age: 74 years old Clinical indication: Injury or trauma; Fall; Blunt trauma (contusions or hematomas) TECHNIQUE: Imaging protocol: Computed tomography of the head without contrast. Radiation optimization: All CT scans at this facility use at least one of these dose optimization techniques: automated exposure control; mA and/or kV adjustment per patient size (includes targeted exams where dose is matched to clinical indication); or iterative reconstruction. COMPARISON: CT Head without contrast 02/29/2020 3:21 PM FINDINGS: Brain: There is moderate age related parenchymal volume loss. White matter changes are demonstrated in the subcortical, centrum semiovale and periventricular white matter consistent with age related small vessel white matter ischemic changes. Cerebral ventricles: The degree of ventricular dilatation is normal for age and/or degree of atrophy present. Bones/joints: Unremarkable. No acute fracture. Paranasal sinuses: Visualized sinuses are unremarkable. No fluid levels. Mastoid air cells: Visualized mastoid air cells are well aerated. Soft tissues: Unremarkable. IMPRESSION: 1. There is moderate age related parenchymal volume loss. White matter changes are demonstrated in the subcortical, centrum semiovale and periventricular white matter consistent with age related small vessel white matter ischemic changes. 2. The degree of ventricular dilatation is normal for age and/or degree of atrophy present. Electronically signed by: Wellington Dawn On 05/13/2020 19:46:33 PM
[2020-05-13 20:40] VITALS: BP 145/80
== END 2020-05-13 23:07 | disposition home or self-care (01) ==
LOC: M ED 16:58
DX: F41.9 Anxiety disorder, unspecified (principal); F33.9 Major depressive disorder, recurrent, unspecified; E78.5 Hyperlipidemia, unspecified; F17.200 Nicotine dependence, unspecified, uncomplicated; Z88.0 Allergy status to penicillin; Z88.6 Allergy status to analgesic agent; Z88.8 Allergy status to other drugs, medicaments and biological substances; Z79.899 Other long term (current) drug therapy
CPT/HCPCS: 36415; 70450; 80048; 80076; 84443; 85027; 99284; G0480

== ENCOUNTER 2020-08-02 18:55 | Emergency (ER) | payer MEDICARE ==
[~2020-08-02] VITALS: Ht 157.5 cm; Wt 50.0 kg
[~2020-08-02 18:55] MED LIST changes: -AMIT10TA; +AMIT10TA7
[2020-08-02] MEDS ORDERED: traMADol 50 MG TAB PO ONE (19:10)
[2020-08-02] MEDS ORDERED: NORCO, ANEXSIA 5/325MG TABLET (HYDROcodone/ACETAMINOPHEN) PO ONE (19:25)
[2020-08-02 19:38] LABS: BASO # 0.1 10^3/uL (0.0-0.2); BASO % 0.6 % (0.0-1.0); EOS # 0.1 10^3/uL (0.0-0.5); EOS % 1.7 % (0.0-3.0); HEMATOCRIT 39.8 % (36.0-47.0); HEMOGLOBIN 12.5 g/dl (12.0-15.5); LYMPH # 2.7 10^3/uL (1.5-5.0); LYMPH % 33.7 % (24.0-44.0); MEAN CORPUSCULAR HEMOGLOBIN 30.1 pg (27.0-33.0); MEAN CORPUSCULAR HGB CONC 31.4 g/dl (32.0-36.5); MEAN CORPUSCULAR VOLUME 95.9 fl (80.0-96.0); MONO # 0.5 10^3/uL (0.0-0.8); NEUTROPHILS # 4.7 10^3/uL (1.5-8.5); NEUTROPHILS % 57.8 % (36.0-66.0); PLATELET COUNT, AUTOMATED 235 10^3/uL (150-450); RED BLOOD COUNT 4.15 10^6/uL (4.00-5.40); WHITE BLOOD COUNT 8.1 10^3/uL (4.0-10.0)
[2020-08-02] MEDS ORDERED: NS 500 ML IV ONE (19:50)
[2020-08-02 20:13] LABS: ALBUMIN 3.7 GM/DL (3.2-5.2); ALT/SGPT 17 U/L (12-78); BILIRUBIN,DIRECT < 0.1 MG/DL (0.0-0.2); BILIRUBIN,TOTAL 0.1 MG/DL (0.2-1.0); BLOOD UREA NITROGEN 10 MG/DL (7-18); CALCIUM LEVEL 8.7 MG/DL (8.8-10.2); CARBON DIOXIDE LEVEL 26 MEQ/L (21-32); CHLORIDE LEVEL 117 MEQ/L (98-107); CK-MB VALUE MASS 2.6 NG/ML (<3.6); CPK CREATINE PHOSPHOKINASE 169 U/L (26-192); CREATININE FOR GFR 1.06 MG/DL (0.55-1.30); GLOMERULAR FILTRATION RATE 54.1 (>39); GLUCOSE, FASTING 86 MG/DL (70-100); MB/CK RELATIVE INDEX 1.54 (< OR =4); SODIUM LEVEL 148 MEQ/L (136-145); TOTAL PROTEIN 6.9 GM/DL (6.4-8.2); TROPONIN I < 0.02 NG/ML (< 0.10)
[2020-08-02 20:30] VITALS: BP 134/77
--- NOTE | 2020-08-03 01:36 | REP ---
INDICATION: Altered Mental Status COMPARISON: 02/29/2020 TECHNIQUE: Portable AP view of the chest FINDINGS: The mediastinum and cardiac silhouette are stable and within normal limits for portable technique. The lung viramontes demonstrate chronic interstitial changes without acute consolidation, effusion, or pneumothorax. Skeletal structures are intact. IMPRESSION: Chronic changes. No acute cardiopulmonary process appreciated. <Electronically signed by Flo Preston > 08/03/20 [id number]
--- NOTE | 2020-08-03 09:39 | ECGEPIP ---
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
== END 2020-08-02 20:41 | disposition home or self-care (01) ==
LOC: EDSEX 18:55 → M ED 18:55 → EDBD 18:55 → M ED 20:41
DX: M79.10 Myalgia, unspecified site (principal); R05 Cough; R51.9 Headache, unspecified; I10 Essential (primary) hypertension; F17.200 Nicotine dependence, unspecified, uncomplicated; Z88.0 Allergy status to penicillin; Z88.6 Allergy status to analgesic agent; Z88.8 Allergy status to other drugs, medicaments and biological substances; Z79.899 Other long term (current) drug therapy

== ENCOUNTER → 2020-08-16 | Outpatient (REF) | payer MEDICARE ==
[2020-08-16 18:26] LABS: APPEARANCE, URINE TURBID (CLEAR); BACTERIA, URINE AUTO 3+ (NEGATIVE); BILIRUBIN, URINE AUTO NEGATIVE (NEGATIVE); BLOOD, URINE BLOOD 2+ (NEGATIVE); COLOR, URINE YELLOW (YELLOW); GLUCOSE, URINE (UA) AUTO NEGATIVE (NEGATIVE); KETONE, URINE AUTO NEGATIVE (NEGATIVE); LEUKOCYTE ESTERASE, URINE AUTO 2+ (NEGATIVE); NITRITE, URINE AUTO POSITIVE (NEGATIVE); PROTEIN, URINE AUTO 3+ mg/dL (NEGATIVE); RBC, URINE AUTO 108 /HPF (0-3); SPECIFIC GRAVITY URINE AUTO 1.017 (1.002-1.035); SQUAMOUS EPITHELIAL CELL UR AU 0 /HPF (0-6); UROBILINOGEN, URINE AUTO 0.2 mg/dL (0.0-2.0); WBC, URINE AUTO TNTC /HPF (0-3)
== END ==
LOC: M LAB REF 16:55
PROVIDERS: ATTEND Physician Assistant
DX: R30.0 Dysuria (principal)

== ENCOUNTER 2020-08-28 14:20 | Emergency (ER) | payer MEDICARE ==
[~2020-08-28] VITALS: Ht 157.5 cm; Wt 47.7 kg
[2020-08-28] MEDS ORDERED: MORPHINE 10 MG/ML 1ML VIAL (J2270) IM ONE ×2 (14:50→16:05)
[2020-08-28 15:14] LABS: BASO # 0.1 10^3/uL (0.0-0.2); BASO % 0.6 % (0.0-1.0); EOS # 0.1 10^3/uL (0.0-0.5); EOS % 0.5 % (0.0-3.0); HEMATOCRIT 41.2 % (36.0-47.0); HEMOGLOBIN 13.4 g/dl (12.0-15.5); LYMPH # 1.9 10^3/uL (1.5-5.0); LYMPH % 14.7 % (24.0-44.0); MEAN CORPUSCULAR HEMOGLOBIN 30.7 pg (27.0-33.0); MEAN CORPUSCULAR HGB CONC 32.5 g/dl (32.0-36.5); MEAN CORPUSCULAR VOLUME 94.3 fl (80.0-96.0); MONO # 0.7 10^3/uL (0.0-0.8); MONO % 5.8 % (2.0-8.0); NEUTROPHILS # 9.9 10^3/uL (1.5-8.5); PLATELET COUNT, AUTOMATED 369 10^3/uL (150-450); RED BLOOD COUNT 4.37 10^6/uL (4.00-5.40); WHITE BLOOD COUNT 12.7 10^3/uL (4.0-10.0)
--- NOTE | 2020-08-28 15:47 | REP ---
INDICATION: neck and back pain. COMPARISON: None. TECHNIQUE: Axial CT images with multiplanar reformations. FINDINGS: There is an exaggerated thoracic kyphosis. No evidence of fracture or malalignment. No significant canal or foraminal narrowing. The bones appear diffusely demineralized. There is atherosclerotic calcification of the aorta noted. There is a calcified pulmonary nodule at the anterior right lungs, image 47 series 506. There is small (perhaps 3-4 mm) ill-defined opacity also on the right lung, image 31 series 506. IMPRESSION: 1. No acute findings. No fracture or subluxation. 2. Diffuse osteopenia. 3. Small pulmonary opacities described. If significant clinical risk factors, CT chest may be informative in follow-up. <Electronically signed by Desean Bundy > 08/28/20 [id number]
[2020-08-28 15:48] LABS: ACETAMINOPHEN LEVEL < 2.0 UG/ML (10.0-30.0); ALBUMIN 3.2 GM/DL (3.2-5.2); ALT/SGPT 21 U/L (12-78); BILIRUBIN,DIRECT < 0.1 MG/DL (0.0-0.2); BILIRUBIN,TOTAL 0.4 MG/DL (0.2-1.0); BLOOD UREA NITROGEN 14 MG/DL (7-18); CALCIUM LEVEL 9.4 MG/DL (8.8-10.2); CARBON DIOXIDE LEVEL 26 MEQ/L (21-32); CHLORIDE LEVEL 111 MEQ/L (98-107); CPK CREATINE PHOSPHOKINASE 71 U/L (26-192); CREATININE FOR GFR 0.74 MG/DL (0.55-1.30); ETHYL ALCOHOL (ETHANOL) < 0.003 % (0.000-0.010); GLOMERULAR FILTRATION RATE > 60.0 (>39); GLUCOSE, FASTING 104 MG/DL (70-100); MB/CK RELATIVE INDEX 2.82 (< OR =4); POTASSIUM SERUM 4.6 MEQ/L (3.5-5.1); SALICYLATE LEVEL 3.8 MG/DL (5.0-30.0); SODIUM LEVEL 143 MEQ/L (136-145); TROPONIN I < 0.02 NG/ML (< 0.10)
--- NOTE | 2020-08-28 15:49 | REP ---
INDICATION: neck and back pain. COMPARISON: None. TECHNIQUE: Axial CT images with multiplanar reformations. FINDINGS: No evidence of fracture or malalignment. Degenerative disc disease is more advanced at the C5-6 level with near absence of disc. No evidence of a significant canal stenosis. No significant foraminal stenosis C2-3 through C4-5. At C5-6 endplate osteophytes result in moderate bilateral foraminal narrowing. At C6-7 and C7-T1 no significant canal or foraminal narrowing. IMPRESSION: No acute findings Degenerative changes noted at the C5-6 level with near absence of disc and endplate osteophytes with moderate foraminal narrowing bilaterally. No significant canal stenosis. <Electronically signed by Desean Bundy > 08/28/20 [id number]
--- NOTE | 2020-08-28 17:12 | REP ---
INDICATION: eval for lung opacities. COMPARISON: Chest CT low-dose lung screening dated 04/10/2019. TECHNIQUE: Chest CT without IV contrast. FINDINGS: There are many tiny lung nodules bilaterally that were present previously and are unchanged. However, there are fewer lung nodules today than previously and many of the lung nodules identified previously have resolved, likely transient atelectasis. No new lung nodules are identified. There are no enlarging lung nodules. There are no infiltrates or effusions. There is bullous replacement of the lung parenchyma bilaterally and bronchiectasis, as previously. There are no infiltrates or pleural effusions. There is no mediastinal or axillary lymphadenopathy. In the absence of IV contrast the study is insensitive for hilar adenopathy. Cardiac size normal. There is calcified atheroma and so of the coronary arteries. No pericardial effusion. Visualized upper abdominal contents are unremarkable. There is no adrenal mass. IMPRESSION: There are tiny lung nodules as described. Bullous emphysema. Bronchiectasis. <Electronically signed by Jonh Lang > 08/28/20 [id number]
[2020-08-28 17:59] LABS: AMPHETAMINES LEVEL URINE NEGATIVE (NEGATIVE); BARBITURATES URINE NEGATIVE (NEGATIVE); BENZODIAZEPINES URINE NEGATIVE (NEGATIVE); CANNABINOIDS URINE NEGATIVE (NEGATIVE); COCAINE METABOLITE URINE NEGATIVE (NEGATIVE); METHADONE URINE NEGATIVE (NEGATIVE); OPIATES URINE POSITIVE (NEGATIVE); PHENCYCLIDINE URINE NEGATIVE (NEGATIVE)
[2020-08-28] MEDS ORDERED: CYCLOBENZAPRINE 10MG TABLET PO ONE (18:10)
[2020-08-28] MEDS ORDERED: CYCL-707 PO (18:12)
[2020-08-28 18:40] VITALS: BP 174/90
[2020-08-28] MEDS ORDERED: PERCOCET 5MG/325MG TAB PO ONE (18:40)
--- NOTE | 2020-08-29 05:59 | ECGEPIP ---
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
--- NOTE | 2020-08-30 07:24 | ED PDOC ---
Post-Departure Follow-Up radiology report faxed to Amy Meraz MD Delaney-Rowland, Sarah MD Aug 30, 2020 07:24
== END 2020-08-28 19:01 | disposition home or self-care (01) ==
LOC: M ED 14:20
DX: M54.2 Cervicalgia (principal); R91.8 Other nonspecific abnormal finding of lung field; J43.9 Emphysema, unspecified; J47.9 Bronchiectasis, uncomplicated; R00.0 Tachycardia, unspecified; M48.02 Spinal stenosis, cervical region; M25.78 Osteophyte, vertebrae; M79.10 Myalgia, unspecified site; I10 Essential (primary) hypertension; F41.9 Anxiety disorder, unspecified; F33.9 Major depressive disorder, recurrent, unspecified; F17.200 Nicotine dependence, unspecified, uncomplicated; Z88.0 Allergy status to penicillin; Z88.1 Allergy status to other antibiotic agents; Z88.6 Allergy status to analgesic agent; Z88.8 Allergy status to other drugs, medicaments and biological substances; Z79.899 Other long term (current) drug therapy
CPT/HCPCS: 36415; 71250; 72125; 72128; 80048; 80076; 80143; 80307; 82077; 82550; 82553; 84484; 85025; 93005; 93041; 94760; 96372; 99285; J2270

== ENCOUNTER 2020-10-14 19:11 | Emergency (ER) | payer MEDICARE ==
[~2020-10-14] VITALS: Ht 157.5 cm; Wt 39.5 kg
[~2020-10-14 19:11] MED LIST changes: +CYCL-707 PO; +GABA-283 PO; -GABA-845
[2020-10-14] MEDS ORDERED: ACETAMINOPHEN TAB 650MG DOSE (2X325MG) PO ONE (19:55)
[2020-10-14 20:30] VITALS: BP 121/75
== END 2020-10-14 20:57 | disposition home or self-care (01) ==
LOC: M ED 19:11
DX: M79.651 Pain in right thigh (principal); I10 Essential (primary) hypertension; E78.5 Hyperlipidemia, unspecified; Z79.899 Other long term (current) drug therapy; Z88.0 Allergy status to penicillin; Z88.5 Allergy status to narcotic agent; Z88.8 Allergy status to other drugs, medicaments and biological substances

== ENCOUNTER 2020-10-16 09:43 | Emergency (ER) | payer MEDICARE ==
[~2020-10-16] VITALS: Ht 157.5 cm; Wt 39.5 kg
[2020-10-16] MEDS ORDERED: PROHANCE 279.3MG/ML 5ML VIAL ONE (09:44)
[2020-10-16] MEDS ORDERED: CYCL-707 (09:56)
[2020-10-16] MEDS ORDERED: ATIV1TAB10 PO (09:56)
[2020-10-16] MEDS ORDERED: TRAM50TA2 PO (09:56)
[2020-10-16] MEDS ORDERED: KETOROLAC 30 MG/ML 1ML VIAL IV ONE (10:35)
[2020-10-16] MEDS ORDERED: NS 1,000 ML IV ONE (10:35)
[2020-10-16] MEDS ORDERED: carisoprodoL 350 MG TAB PO ONE (10:35)
[2020-10-16 11:17] LABS: BASO # 0.1 10^3/uL (0.0-0.2); BASO % 0.9 % (0.0-1.0); EOS # 0.2 10^3/uL (0.0-0.5); EOS % 1.7 % (0.0-3.0); HEMATOCRIT 34.9 % (36.0-47.0); HEMOGLOBIN 10.8 g/dl (12.0-15.5); LYMPH # 2.1 10^3/uL (1.5-5.0); LYMPH % 21.1 % (24.0-44.0); MEAN CORPUSCULAR HEMOGLOBIN 28.1 pg (27.0-33.0); MEAN CORPUSCULAR HGB CONC 30.9 g/dl (32.0-36.5); MEAN CORPUSCULAR VOLUME 90.6 fl (80.0-96.0); MONO # 0.6 10^3/uL (0.0-0.8); MONO % 6.5 % (2.0-8.0); NEUTROPHILS # 6.8 10^3/uL (1.5-8.5); NEUTROPHILS % 69.5 % (36.0-66.0); PLATELET COUNT, AUTOMATED 464 10^3/uL (150-450); RED BLOOD COUNT 3.85 10^6/uL (4.00-5.40); WHITE BLOOD COUNT 9.8 10^3/uL (4.0-10.0)
[2020-10-16 11:44] LABS: BILIRUBIN,DIRECT 0.2 MG/DL (0.0-0.2); BILIRUBIN,TOTAL 0.4 MG/DL (0.2-1.0); TOTAL PROTEIN 6.6 GM/DL (6.4-8.2)
[2020-10-16] MEDS ORDERED: LORazepam 2 MG/ML VIAL IV STA (11:58)
--- NOTE | 2020-10-16 15:13 | REPVR ---
PROCEDURE INFORMATION: Exam: MR Lumbar Spine Without and With Contrast Exam date and time: 10/16/2020 10:29 AM Age: 74 years old Clinical indication: Low back pain; Additional info: Urinary incontinence new/ severe back pain TECHNIQUE: Imaging protocol: Multiplanar magnetic resonance images of the lumbar spine without and with intravenous contrast. Contrast material: PROHANCE; Contrast volume: 7 ml; Contrast route: INTRAVENOUS (IV); COMPARISON: CR Spine,LS wBENDING MIN 6 VIEWS 07/03/2019 12:42 PM FINDINGS: Vertebrae: There is no fracture or listhesis. Marrow signal is within normal limits. Spinal cord: Normal signal. No cord compression. L1-L2: There is shallow disc bulging. There is mild facet hypertrophy. There is mild right neural foraminal narrowing. L2-L3: There is shallow disc bulging. There is mild facet and ligamentous hypertrophy. There is mild bilateral neural foraminal narrowing. L3-L4: There is diffuse disc bulging. There is moderate facet and ligamentous hypertrophy. There is focal fluid within the left facet joint. There is edema centered over the left L3/4 facet, with some enhancement of the marrow and adjacent soft tissues. There is mild canal stenosis. There is mild bilateral neural foraminal narrowing. L4-L5: There is diffuse disc bulging. There is moderate facet and ligamentous hypertrophy. There is fluid within the facet joints bilaterally. There is marrow edema and enhancement involving the right L4/5 facet joint and adjacent soft tissues. There is mild canal stenosis. There is mild to moderate right neural foraminal narrowing. L5-S1: There is shallow disc bulging. There is moderate facet hypertrophy. Soft tissues: There is abnormal edema and enhancement extending along the L2/3 and L4/5 inter spinous ligaments and overlying soft tissues. Additional edema and enhancement centered along the left L3/4 and right L4/5 facet joints. IMPRESSION: Findings potentially worrisome for infectious or inflammatory process involving the right L4/5 and left L3/4 facet joints, with extension of edema and enhancement into the adjacent soft tissues and interspinous ligaments. Electronically signed by: Catalina Miranda On 10/16/2020 15:12:58 PM
[2020-10-16] MEDS ORDERED: METOCLOPRAMIDE INJ 10MG/2ML VIAL (J2765 PER 1) IV ONE (16:10)
[2020-10-16] MEDS ORDERED: MORPHINE 2 MG/ML 1ML VIAL (J2270) IV ONE ×2 (16:10→18:35)
[2020-10-16 17:18] LABS: C REACTIVE PROTEIN QUANTITATIV 2.63 MG/DL (0.00-0.30)
[2020-10-16] MEDS ORDERED: ACET-897 PO (17:25)
[2020-10-16 18:25] LABS: ERYTHROCYTE SEDIMENTATION RATE 62 mm/hr (0-30)
[2020-10-16] MEDS ORDERED: HYDROMORPHONE HCL 0.5 MG/ 0.5 ML SYRINGE (J1170 PER 1) IV ONE (20:25)
[2020-10-16 20:29] VITALS: BP 134/65
--- NOTE | 2020-10-18 08:21 | ED PDOC ---
Post-Departure Follow-Up radiology repor tfaxed to Yasmine Barnard MD October 18, 2020 08:21
== END 2020-10-16 20:38 | disposition short-term general hospital (02) ==
LOC: M ED 09:43
DX: M51.26 Other intervertebral disc displacement, lumbar region (principal); R93.7 Abnormal findings on diagnostic imaging of other parts of musculoskeletal system; M48.061 Spinal stenosis, lumbar region without neurogenic claudication; I10 Essential (primary) hypertension; E78.5 Hyperlipidemia, unspecified; G47.33 Obstructive sleep apnea (adult) (pediatric); R91.1 Solitary pulmonary nodule; Z88.0 Allergy status to penicillin; Z88.6 Allergy status to analgesic agent; Z88.8 Allergy status to other drugs, medicaments and biological substances; Z79.899 Other long term (current) drug therapy; Z20.822 Contact with and (suspected) exposure to COVID-19
CPT/HCPCS: 72158; 80047; 80076; 82550; 83690; 85025; 85652; 86140; 96374; 96375; 96376; 99284; A9576; J1170; J1885; J2060; J2270; J2765; U0002

== ENCOUNTER 2021-06-20 11:02 | Emergency (ER) | payer MEDICARE ==
[~2021-06-20] VITALS: Ht 157.5 cm; Wt 40.0 kg
[~2021-06-20 11:02] MED LIST changes: +ACET-897 PO; +ATIV1TAB10 PO; +CYCL-707
[2021-06-20] MEDS ORDERED: advil PO (11:20)
[2021-06-20 15:15] VITALS: BP 139/79
== END 2021-06-20 15:28 | disposition home or self-care (01) ==
LOC: M ED 11:02
DX: G43.909 Migraine, unspecified, not intractable, without status migrainosus (principal); I67.82 Cerebral ischemia; Z88.0 Allergy status to penicillin; Z88.5 Allergy status to narcotic agent; Z88.8 Allergy status to other drugs, medicaments and biological substances
CPT/HCPCS: 70450; 96361; 96374; 99284; J0780